=== PATIENT | male | born 1990 | race Caucasian/White ===

== ENCOUNTER 2019-05-15 05:12 | Emergency (ER) | payer SELFPAY ==
[2019-05-15] MEDS ORDERED: ACETAMINOPHEN 500 MG TAB PO ONE (06:14)
--- NOTE | 2019-05-15 06:20 | ED.PDOC ---
History of Present Illness - History of Present Illness Initial Comments: 28 yo M no significant PMH presents to ED c/o left foot pain after stepping on nail with tennis shoe 05:30pm yesterday. Tetanus is not up to date. Has no PMD for follow up. Denies head injury LOC fever chills nauseabowel or bladder admits smoking denies drinking admits FH DM denies FH HTN. No other c/o today. vomiting diarrhea chest pain sob diaphoresis. No change in diet rest bowel or bladder admits smoking denies drinking admits FH DM denies FH HTN no other c/o today. Occurred: yesterday Pain - Lower Extremity: moderate: Left Foot - stepped on nail Method of Injury: other Improving Factors: nothing Worsening Factors: nothing <Anish Stephens - Last Filed: 05/15/19 06:15> - General Source: patient, RN notes reviewed, Vital Signs reviewed Exam Limitations: no limitations - History of Present Illness Pain - Lower Extremity: mild: Left Foot <Deangelo Lemons - Last Filed: 05/15/19 07:30> - General Stated Complaint: Pt with c/o left foot pain s/p stepping on a nail. Pt denies any f/c/n/v/d. +TTP of forefoot. No bleeding. Time Seen by Provider: 05/15/19 06:11 - History of Present Illness Home Medications: Ambulatory Orders Ondansetron [Zofran Odt] 4 mg PO Q4H PRN #10 tab 07/07/16 Ciprofloxacin HCl [Cipro] 500 mg PO BID #14 tab 05/15/19 Review of Systems - Review of Systems Constitutional: States: see HPI EENTM: States: see HPI Respiratory: States: no symptoms reported Gastrointestinal/Abdominal: States: no symptoms reported Genitourinary: States: no symptoms reported Musculoskeletal: States: see HPI Skin: States: see HPI Neurological: States: no symptoms reported Endocrine: States: no symptoms reported All other Systems: Reviewed and Negative <Anish Stephens - Last Filed: 05/15/19 06:15> Past Medical History (General) - Patient Medical History Hx Seizures: No Hx Stroke: No Hx Dementia: No Hx Asthma: No - as child Hx of COPD: No Hx Cardiac Disorders: No Hx Congestive Heart Failure: No Hx Pacemaker: No Hx Hypertension: No Hx Thyroid Disease: No Hx Diabetes: No Hx Gastroesophageal Reflux: Yes Hx Renal Disease: No Hx Cancer: No Hx of HIV: No Hx Hepatitis C: No Hx MRSA: No - Vaccination History Hx Tetanus, Diphtheria Vaccination: No Hx Influenza Vaccination: Yes - Social History Hx Tobacco Use: Yes Hx Alcohol Use: No Hx Physical Abuse: No Hx Emotional Abuse: No Hx Suspected Abuse: No - Female History Patient : No <Anish Stephens - Last Filed: 05/15/19 06:15> Family Medical History - Family History Father Hx Family;Other: liver cirrhosis <Anish Stephens - Last Filed: 05/15/19 06:15> Physical Exam - Physical Exam General Appearance: No apparent distress Eyes, Ears, Nose, Throat: normal ENT inspection Cardiovascular/Respiratory: regular rate, rhythm Gastrointestinal/Abdominal: non-tender Back: normal inspection Thigh/Hip: non-tender Leg: normal inspection Knee: normal inspection Ankle: normal inspection Foot: other - punctate lesion to forefoot on the left no bleeding <Anish Stephens - Last Filed: 05/15/19 06:15> - Physical Exam General Appearance: Alert, Comfortable, Well Developed, Well Groomed, Well Hydrated, Well Nourished Neck: non-tender, full range of motion, supple, normal inspection Cardiovascular/Respiratory: no M/R/G Thigh/Hip: no evidence of injury Leg: non-tender, no evidence of injury Knee: non-tender, no evidence of injury Ankle: non-tender, no evidence of injury Neuro/Tendon: normal sensation, normal motor functions, normal tendon functions Mental Status: alert, oriented x 3 Skin: normal color, warm/dry <Deangelo Lemons - Last Filed: 05/15/19 07:30> Progress - Progress Progress: 05/15/19 06:22 A/P-Puncture Wound 1.xr l foot tylenol tetanus if unremarkable d/c follow up pcp referral tylenol ibuprofen ciprofloxacin signed out to oncoming physician <Anish Stephens - Last Filed: 05/15/19 06:15> - EKG/XRAY/CT Xray Comments: No frx or FB. <Deangelo Lemons - Last Filed: 05/15/19 07:30> Departure <Anish Stephens - Last Filed: 05/15/19 06:15> <Deangelo Lemons - Last Filed: 05/15/19 07:30> - Departure Clinical Impression: Puncture wound of foot without foreign body Qualifiers: Encounter type: initial encounter Laterality: left Qualified Code(s): S91.332A - Puncture wound without foreign body, left foot, initial encounter Clinical Impression: (Ruled Out): Puncture wound of abdomen without foreign body Disposition: Discharge to Home or Self Care Condition: Good Departure Forms: ED Discharge - Pt. Copy Instructions: Wound Care (DC), DI for Wound Infection Prescriptions: Ciprofloxacin HCl [Cipro] 500 mg PO BID #14 tab Home Medications: Ambulatory Orders Ondansetron [Zofran Odt] 4 mg PO Q4H PRN #10 tab 07/07/16 Ciprofloxacin HCl [Cipro] 500 mg PO BID #14 tab 05/15/19 Addendum entered and electronically signed by Deangelo Lemons MD 05/15/19 09:59: Departure - Departure Clinical Impression: Puncture wound of foot without foreign body Qualifiers: Encounter type: initial encounter Laterality: left Qualified Code(s): S91.332A - Puncture wound without foreign body, left foot, initial encounter Disposition: Discharge to Home or Self Care Condition: Good Departure Forms: ED Discharge - Pt. Copy Instructions: DI for Wound Infection, Wound Care (DC) Prescriptions: Ciprofloxacin HCl [Cipro] 500 mg PO BID #14 tab Home Medications: Ambulatory Orders Ondansetron [Zofran Odt] 4 mg PO Q4H PRN #10 tab 07/07/16 Ciprofloxacin HCl [Cipro] 500 mg PO BID #14 tab 05/15/19 ED Addendum - ED Addendum Addendum: Seen and dispositioned by me. Deangelo Lemons M.D. #[id number]
[2019-05-15] MEDS ORDERED: TETANUS,DIPHTHERIA,PERTUSSIS 1 EA SYG IM ONE (06:37)
--- NOTE | 2019-05-15 06:57 | RAD ---
CLINICAL HISTORY: 28 years Male puncture nail COMPARISON: None TECHNIQUE: AP, lateral and oblique views of the left foot are obtained. FINDINGS: OSSEOUS: There is no evidence of acute fracture or osteolytic/osteoblastic lesions. There is no evidence of subluxation or dislocation. The third and fourth metatarsal bones appear somewhat gracile. There is shortening of the third metatarsal bone with mild deformity distally which could reflect sequela of previous trauma. The joint spaces are preserved. There is no evidence of degenerative osteophytosis or sclerosis. There is no evidence of marginal erosive changes to suggest an inflammatory arthritis. The ankle mortise is symmetric with a smooth talar dome and no evidence of widening of the distal tibiofibular syndesmosis. SOFT TISSUES: There is no significant soft tissue swelling or mass. However soft tissue injury suspected projecting between the first and second MTP joints. No evidence of significant soft tissue calcifications. No radiopaque foreign bodies with the exception of some subungual debris in the first digit. There is no evidence of an ankle joint effusion. IMPRESSION: No acute osseous abnormality. Remainder of findings as described above. Electronically signed by: Coleen Huynh MD 05/15/2019 6:56 AM CDT
[2019-05-15 07:50] VITALS: BP 117/79; TEMP 96.7; O2SAT 98
== END 2019-05-15 07:40 | disposition home or self-care (01) ==
LOC: ER 05:12
DX: S91.332A Puncture wound without foreign body, left foot, initial encounter (principal); K21.9 Gastro-esophageal reflux disease without esophagitis; F17.200 Nicotine dependence, unspecified, uncomplicated; W45.0XXA Nail entering through skin, initial encounter; Y92.9 Unspecified place or not applicable